=== PATIENT | male | born 1970 | race Caucasian/White ===

== ENCOUNTER → 2018-02-11 07:58 | Outpatient (CLI) | payer OTHER, SELFPAY ==
--- NOTE | 2018-02-11 08:05 | DI.MRI.S_ITS ---
PROCEDURE: MR ORBITS FACE NECK WO/W CON INDICATIONS: LOCALIZED ENLARGED LYMPH NODES TECHNIQUE: Sagittal/axial/coronal T1 spin echo and STIR. After the administration of contrast, axial/coronal/sagittal T1 fast spin echo with fat saturation through the neck. COMPARISON: None. FINDINGS: Image quality: Excellent. Lymph nodes: No lymphadenopathy based on size criteria. Vessels: Visualized vasculature appears normal, with normal flow voids and enhancement. Neck spaces: The oropharynx, nasopharynx and pharynx are unremarkable, without mucosal lesions seen. Vocal cords, false vocal cords, pyriform sinuses, epiglottis, vallecula, and tongue base all appear normal. Extramucosal spaces of the neck also appear unremarkable. Glands: There is a 2.4 x 2.8 x 2.5 cm heterogeneously enhancing mass involving the right submandibular gland. Left submandibular gland is normal in appearance. The parotid glands appear normal. Thyroid gland is normal in. Miscellaneous: Visualized brain and orbits appear normal. Lung apices appear clear. Superficial soft tissues appear normal. Mucous retention cysts versus polyps noted in the maxillary sinuses bilaterally. The mastoids appear clear. Bones: Marrow has normal overall signal. IMPRESSION: 2.4 x 2.8 x 2.5 cm heterogeneous enhancing right submandibular gland mass. Differential diagnosis includes benign etiology such as pleomorphic adenoma and malignant etiologies including mucoepidermoid carcinoma or metastatic lesion. Recommend ENT consultation for biopsy evaluation. Dictated by: Naila Alcantar MD, PhD on 02/13/2018 at 8:52 Approved by: Naila Alcantar MD, PhD on 02/13/2018 at 9:12
== END ==
PROVIDERS: Visit Provider Student in an Organized Health Care Education/Training Program
DX: R59.0 Localized enlarged lymph nodes (principal); K11.9 Disease of salivary gland, unspecified
CPT/HCPCS: 70543; A9579

== ENCOUNTER 2019-07-04 10:30 | Outpatient (RCR) | payer OTHER, SELFPAY ==
--- NOTE | 2019-06-27 17:46 | ST.OPIE ---
Visit Care Team Role Provider Type Linda Mcdonough MD Attending Provider Non-Staff Primary Care Provider Referring Provider Specialty: Family Practice Address: [address] [place] [address], [id number] Email: Speech-Language Pathology Initial Evaluation INSIDE WIRER Motor Speech Evaluation Start: 06/27/19 13:04 Freq: Status: Active Protocol: Document 06/27/19 13:05 LNK (Rec: 06/27/19 17:46 LNK [id number]) Motor Speech Evaluation Session Time Visit Start Time 13:30 Visit Stop Time 14:15 Total Visit Minutes 45 Visit Information Visit Number 05/11 Plan of Care Dates 06/27/19-07/28/19 Setting Setting Outpatient Care Next Note Type Next Note Type Treatment Note Patient History Source: [employer] [facility]). 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 He reports that he has has this surgery twice. The first tumor removal was ~ 2005 or 2006. The most recent removal was removed March 06, 2019. The tumor had attached itself to the hypoglossal nerve. According to Rick, the nerve was injured during the surgery; so chemo therapy and/or radiation therapy were not prescribed to allow the nerve to heal. Rick reported that immediately following his surgery, he had difficulty with eating and swallowing and drooling. He stated that his tongue does not move the food around his mouth when chewing. He compares his speech and tongue movements as being like after he has been numbed at the dentist. He frequently bites his tongue on the right side. Rick also noted that if he eats rapidly, he feels that the food goes down to his esophagus rapidly. At times he feels that something is stuck in his throat after eating. Rick reported that his speech has changed.He needs to be conscientious about speaking slowly so he won't slur his speech. He stated that when he gets excited and/or tired, his speech production and intelligibility are diminished . 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. Oral Motor Lips Function WNL Tongue Function Mild Impairment Observations at rest symmetrical Protrusion deviation to the right Retraction deviation to the left Lateralization Pt cannot perform right side tongue sweep; Involuntary Movement n/a Jaw Function WNL Soft Palate Function WNL Respiration/Phonation Phonation Quality WFL Diadochokinetic Rates P^ Quality WFL T^ Quality WFL K^ Quality WFL P^T^K^ Quality WFL Speech Intelligibility Awareness/Strategy Use Description Type of awareness/use Uses consistently Findings Details Motor Speech Function Mild-Moderate Impairment Assessment Details Assessment Rick Tang presented with weakened right side lingual muscles. Decreased lingual ROM , and coordination was also observed. Rick reports diminished speech and swallowing since his surgery. He also reported that both speech and swallowing have improved since his surgery. This in encouraging for continued therapeutic exercises targeting lingual and linguapharyngeal muscle strength and ROM. As his strength, ROM and coordination improves it is expected that both speech and swallowing skills will improve. Prognosis Rehabilitation Potential Good Recommendations Treatment Recommended Yes Frequency 1x/week Duration 3-4 months Therapy Recommendations Om exercises to increase lingual ROM, strength and coordination Short Term Goals Rick will perform assigned exercises as part of his HEP daily. Increased lingual ROM, strength and coordination will occur as evident in length, duration and speech clarity in raid speech activities . Pt will report improved mastication and bolus control. Patient/Family Education Education Patient Understanding,Patient Demonstration
--- NOTE | 2019-06-27 17:48 | ST.OPPOC ---
Physical, Occupational & Speech Therapy At [facility] Visit Care Team Role Provider Type Linda Mcdonough MD Attending Provider Non-Staff Primary Care Provider Referring Provider Address: [address] [place] [address], [address] Speech Pathology Plan of Care Plan of Care Dates 06/27/19-07/28/19 Short Term Goals Rick will perform assigned exercises as part of his HEP daily. Increased lingual ROM, strength and coordination will occur as evident in length, duration and speech clarity in raid speech activities . Pt will report improved mastication and bolus control. Electronically Signed by: CHLOÉ Snyder 06/27/19 [id number] Please Sign and Return: I have reviewed this Plan of Care and certify that the skilled therapy services above are required to meet the patient?s needs. Physician Signature Date Printed Name and Credentials Clinical Instructor Signature Printed Name and Credentials
--- NOTE | 2019-07-04 13:16 | ST.IPDYTX ---
Visit Care Team Role Provider Type Linda Mcdonough MD Attending Provider Non-Staff Primary Care Provider Referring Provider Specialty: [facility] Address: [address] [place] [address], [id number] Email: PROFESSIONAL HOUSING CONSULTANT Dysphagia Treatment PROFESSIONAL HOUSING CONSULTANT Dysphagia Treatment Start: 06/27/19 13:04 Freq: Status: Active Protocol: Document 07/04/19 13:04 LNK (Rec: 07/04/19 13:16 LNK [id number]) Dysphagia Treatment Session Time Visit Start Time 10:30 Visit Stop Time 11:15 Total Visit Minutes 45 Visit Information Visit Number 2 Plan of Care Dates 06/27/19-07/28/19 Setting Assessment Location Outpatient Care Visit Type Note Type Treatment Note Next Note Type Next Note Type Treatment Note Patient Information Identification Type Name,Picture Treatment Additional Dysphagia Treatment chewing gum; OM strengthening, Strategies increasing ROM exercises Treatment Activities Reviewed exercises from last week. Pt reported that his ROM of right side of tongue has increased. Demonstrated same to me. Extended the right ROM exercise to putting his tongue tip into the buccal cavity lower right and moving posteriorly. Pt demonstrated exercise to this PROFESSIONAL HOUSING CONSULTANT successfully. Additionally a computer generated video of mastication was shown to pt in order to understand rotary chewing. Pt then chewed 2 pieces of gum with specific directions to move gum bolus L -R and R-L to facilitate lingual action controlling the bolus during chewing. 2 new exercises: posterior lingual elevation exercise and holding the gum to his right side of palate. Both exercises to target for right lingual muscle strengthening Pt demonstrated all exercises successfully. Written description provided for HEP. Assessment Patient Response to Treatment Excellent Rehab Potential Excellent Aspiration Precautions Recommended Precautions Upright at 90 Degrees,Lingual Sweep,Clair Maneuvor Treatment Plan Placement Recommendation after Discharge Outpatient Therapy Appropriate for Continued Therapy Yes Dysphagia Goals Rick will perform assigned exercises as part of his HEP daily. Increased lingual ROM, strength and coordination will occur as evident in length, duration and speech clarity in raid speech activities . Pt will report improved mastication and bolus control. [ End ]
--- NOTE | 2020-03-03 15:40 | ST.IPDYTX ---
Visit Care Team Role Provider Type Linda Mcdonough MD Attending Provider Non-Staff Primary Care Provider Referring Provider Specialty: Family Practice Address: [address] [place] [address], [address] Email: PROVIDER RELATIONS SPECIALIST Dysphagia Treatment PROVIDER RELATIONS SPECIALIST Dysphagia Treatment Start: 06/27/19 13:04 Freq: Status: Active Protocol: Document 03/03/20 15:39 LNK (Rec: 03/03/20 15:40 LNK [id number]) Dysphagia Treatment Setting Assessment Location Outpatient Care Visit Type Note Type Discharge Summary Treatment Additional Dysphagia Treatment chewing gum; OM strengthing, Strategies increasing ROM exercises Treatment Activities Reviewed exercises from last week. Pt reported that his ROM of right side of tongue has increased. Demonstrated same to me. Extended the right ROM exercise to putting his tongue tip into the buccal cavity lower right and moving posteriorly. Pt demonstrated exercise to this PROVIDER RELATIONS SPECIALIST successfully. Additionally a computer generated video of mastication was shown to pt in order to understand rotary chewing. Pt then chewed 2 pieces of gum with specific directions to move gum bolus L -R and R-L to facilitate lingual action controlling the bolus during chewing. 2 new exercises: posterior lingual elevation exercise and holding the gum to his right side of palate. Both exercises to target for right lingual muscle strengthening Pt demonstrated all exercises successfully. Written description provided for HEP. Assessment Assessment of Improvement Pt has not been sees for swallowing therapy since . Will discharge at this time Treatment Plan Appropriate for Continued Therapy No Therapy Recommendations Discharge
== END 2020-05-08 08:05 | disposition home or self-care (01) ==
LOC: SP 10:30
DX: R47.9 Unspecified speech disturbances (principal)
CPT/HCPCS: 92522; 92526

== ENCOUNTER → 2019-09-12 15:30 | Outpatient (CLI) | payer OTHER, SELFPAY ==
--- NOTE | 2019-09-12 | DI.MRI.S_ITS ---
PROCEDURE: MR BRAIN (IAC) WWO CON INDICATIONS: Unspecified hearing loss, left ear TECHNIQUE: Noncontrast sagittal T1 spin echo, axial FLAIR, axial gradient echo, axial diffusion and ADC through the brain. Axial thin-slice 3D CISS, coronal TruFISP, axial T1 spin echo with fat saturation through the internal auditory canals. After the administration of contrast, thin slice axial and coronal T1 spin echo with fat saturation through the internal auditory canals, and axial T1 spin echo with fat saturation through the brain. COMPARISON: [facility], MR, MR ORBITS FACE NECK WO/W CON, 02/11/2018, 8:25. FINDINGS: Image quality: Excellent. Cerebellopontine angles: No cerebellopontine angle masses. Inner ear structures appear normally formed. No suspicious enhancement in the internal auditory canal or along the course of the 7th cranial nerve. CSF spaces: Ventricles are normal in size and shape. No extra-axial fluid collections. Basal cisterns are patent. Brain: No intracranial bleeds or mass effects. Palacios-white matter interface is intact. No abnormal intracranial enhancement. Diffusion weighted images demonstrate no acute ischemic insults. Brainstem appears normal. Normal intravascular flow voids are present. Dural sinuses demonstrate normal postcontrast enhancement. Skull and face: Calvarial marrow signal is normal. Small, approximately 1.3 cm in maximum diameter focus of isointense T1 signal and hyperintense T2 signal without postcontrast enhancement noted in the right petrous apex which is stable compared to prior MRI. Lesion may represent a mucocele the petrous apex. Orbits appear normal. Sinuses: Mucosal retention cyst versus polyps noted in the maxillary sinuses bilaterally. The mastoids are clear. IMPRESSION: 1. No acute intracranial disease process. 2. No evidence of vestibular schwannoma. Dictated by: Naila Alcantar MD, PhD on 09/12/2019 at 17:08 Approved by: Naila Alcantar MD, PhD on 09/12/2019 at 17:18
== END ==
DX: H91.92 Unspecified hearing loss, left ear (principal)
CPT/HCPCS: 70553

== ENCOUNTER → 2020-02-15 07:52 | Outpatient (CLI) | payer OTHER, SELFPAY ==
--- NOTE | 2020-02-15 | DI.ECHO.S_ITS ---
[facility]---------+ [facility] +---------+ : : [address] : : : : [id number] : : : : Phone: [phone]+ Echocardiogram Report + + :Name: TAO HERMAN Study Date: 02/15/2020 Height: 70 in : :[facility] Weight: 253 lb : : Gender: Male BSA: 2.3 m2 : :: 1970 Age: 49 yrs BP: 133/90 mmHg: :Reason For Study: Abnormal ECG/ WEAK VENTRICLE : : Performed By: Nichole Page : + + Interpretation Summary Left ventricular systolic function is normal with an estimated ejection fraction of 55 to 60% without any focal wall motion abnormality. Left ventricular size and wall thickness appear normal. Diastolic function is likely normal with normal filling pressures. The right ventricle appears normal. Pulmonary artery systolic pressure cannot be estimated but CVP is likely around 3 mmHg. Both atria are normal in size. There is no significant valvular abnormality. The patient was in sinus rhythm with occasional PVCs during the exam. Procedure: A two-dimensional transthoracic echocardiogram with color flow and Doppler was performed. The study quality was technically adequate. There is no prior echocardiogram noted for this patient. The patient was in normal sinus rhythm during the exam. The patient had occasional PVCs during the exam. Left Ventricle: The left ventricle appears normal in size, wall thickness, and systolic function without any focal wall motion abnormalities. The ejection fraction is estimated to be 55-60%. Diastolic parameters suggest probable normal left ventricular diastolic function and normal filling pressures. Right Ventricle: The right ventricle is normal in size and function. Atria: Both atria are normal in size. Doppler interrogation and injection of saline echo contrast shows no evidence for an interatrial shunt. Mitral Valve: The mitral valve leaflets appear normal. There is no evidence of stenosis, fluttering, or prolapse. There is trace mitral regurgitation. Aortic Valve: The aortic valve is trileaflet. The aortic valve is slightly calcified. The aortic valve opens well. There is trace aortic regurgitation. Tricuspid Valve: The tricuspid valve is normal in structure and function. There is a trace or physiologic amount of tricuspid regurgitation. Pulmonary artery pressures cannot be estimated because of the lack of a measurable TR jet velocity but the IVC suggests a CVP of around 3 mmHg. Pulmonic Valve: The pulmonic valve is not well seen, but is grossly normal. There is a trace or physiologic amount of pulmonic regurgitation. There is no significant valvular heart disease. Great Vessels: The aortic root is normal size. The ascending aorta is normal in size. The pulmonary artery is normal size. The IVC is of normal diameter and collapses greater than 50% with a sniff. This suggests a low right atrial pressure of 3 mm Hg. Pericardium/ Pleura There is no pericardial effusion. There is no pleural effusion. MMode/2D Measurements & Calculations LVIDd: 5.3 cm LVOT diam: 2.5 cm LVIDs: 4.0 cm Ao root diam: 3.6 cm FS: 24.9 % asc Aorta Diam: 3.1 cm IVSd: 0.74 cm LVPWd: 0.74 cm LV castorena. diameter/BSA (cm/m^2): 2.3 LV sys. diameter/BSA (cm/m^2): 1.7 LA A2 area: 20.7 cm2 RA long axis: 4.9 cm LA A4 area: 23.6 cm2 RA area: 16.0 cm2 LA length (vol): 5.7 cm RA vol: 44.7 ml LA vol: 72.8 ml RA : 19.4 ml/m2 LA vol index: 31.6 ml/m2 IVC diam: 1.5 cm RVD1 (basal): 3.9 cm TAPSE: 1.6 cm Doppler Measurements & Calculations LVOT Max Choco: 82.4 cm/sec MV E max choco: 66.5 cm/sec LV V1 max P.7 mmHg MV A max choco: 58.5 cm/sec LV V1 VTI: 16.8 cm MV E/A: 1.1 Med Peak E' Choco: 7.8 cm/sec E/E' med: 8.5 Lat Peak E' Choco: 11.4 cm/sec E/E' lat: 5.8 E/e' average: 7.2 MV P1/2t: 57.9 msec PA V2 max: 63.4 cm/sec MV P1/2t max choco: 67.1 cm/sec PA V2 mean: 43.8 cm/sec MVA(P1/2t): 3.8 cm2 PA mean P.84 mmHg PA Accel Time: 0.11 sec SV([facility]): 81.5 ml Reading Physician:01:32 PM
== END ==
PROVIDERS: PCP Physician Assistant; Referring Provider Orthopaedic Surgery; Visit Provider Orthopaedic Surgery
DX: R94.31 Abnormal electrocardiogram [ECG] [EKG] (principal)
CPT/HCPCS: 93306

== ENCOUNTER → 2020-08-14 08:00 | Outpatient (CLI) | payer OTHER, SELFPAY ==
--- NOTE | 2020-08-14 | DI.US.S_ITS ---
PROCEDURE: US ABDOMEN COMPLETE INDICATIONS: CHRONIC KIDNEY DISEASE STAGE 3 TECHNIQUE: Real-time scanning was performed of the abdominal and retroperitoneal organs, with image documentation. COMPARISON: None. FINDINGS: Study limited secondary to patient scanning characteristics and increased bowel gas. Liver: The liver demonstrates diffusely increased echotexture without focal abnormalities consistent with chronic hepatocellular disease/hepatic steatosis. The michael hepatis and main portal vein were not well visualized. Gallbladder: Gallbladder contains a 1.8 cm x 1.4 cm mobile gallstone without associated wall thickening or pericholecystic fluid. Biliary ducts: Intrahepatic bile ducts are non-dilated. Extrahepatic bile duct is not well visualized. Pancreas: Visualized portions of the pancreas are sonographically normal. Spleen: Spleen is normal in size and homogeneous in echotexture. There is a thin linear echogenic band noted within the mid spleen. This may represent a cleft. Kidneys: Kidneys are normal in size and echotexture. Right kidney measures 10.9 cm long; left kidney measures 10.9 cm long. No hydronephrosis or nephrolithiasis. No solid masses. Aorta: Visualized aorta is normal in caliber at less than 3 cm. Iliacs: Proximal common iliac arteries are normal in caliber at less than 2.5 cm. IVC: Intrahepatic inferior vena cava is not well visualized. Miscellaneous: No free abdominal fluid. IMPRESSION: 1. The liver demonstrates diffusely increased echotexture without focal abnormalities consistent with chronic hepatocellular disease/hepatic steatosis. Consider correlation with LFTs. 2. Cholelithiasis without sonographic evidence for acute cholecystitis. 3. Linear hyperechoic band within the mid spleen likely representing a splenic cleft. 4. Unremarkable sonographic evaluation of the kidneys. No evidence for obstructive uropathy. Dictated by: Ravinder Salazar M.D. on 08/14/2020 at 9:11 Approved by: Ravinder Salazar M.D. on 08/14/2020 at 9:17
== END ==
PROVIDERS: PCP Family Medicine; Referring Provider Family Medicine; Visit Provider Family Medicine
DX: K80.20 Calculus of gallbladder without cholecystitis without obstruction (principal); N18.30 Chronic kidney disease, stage 3 unspecified
CPT/HCPCS: 76700

== ENCOUNTER → 2021-10-27 12:13 | Outpatient (CLI) | payer OTHER, SELFPAY ==
--- NOTE | 2021-10-27 | DI.RAD.S_ITS ---
PROCEDURE: XR CERVICAL SPINE 2V OR 3V INDICATIONS: Radiculopathy, cervical region TECHNIQUE: 3 view(s) of the cervical spine were acquired. COMPARISON: None. FINDINGS: Bones: No fractures or dislocations to the C6-7 level. The lateral masses of C1 appear intact on the odontoid view. No suspicious bony lesions. There is loss of the expected cervical lordosis. Soft tissues: No prevertebral soft tissue swelling. Surgical clips are present within the right cervical soft tissues. IMPRESSION: No radiographic abnormalities. Dictated by: Daina Hood M.D. on 10/27/2021 at 16:54 Approved by: Daina Hood M.D. on 10/27/2021 at 16:55
== END ==
PROVIDERS: PCP Family Medicine; Referring Provider Family Medicine; Visit Provider Family Medicine
DX: M54.12 Radiculopathy, cervical region (principal)
CPT/HCPCS: 72040

== ENCOUNTER → 2022-10-01 07:37 | Outpatient (CLI) | payer OTHER, SELFPAY ==
--- NOTE | 2022-10-01 | DI.RAD.S_ITS ---
PROCEDURE: XR CERVICAL SPINE 2V OR 3V INDICATIONS: Radiculopathy, cervical region TECHNIQUE: 3 view(s) of the cervical spine were acquired. COMPARISON: [facility], CR, XR CERVICAL SPINE 2V OR 3V, 10/27/2021, 12:30. FINDINGS: Bones: No fractures or dislocations to the T1 level. The lateral masses of C1 appear intact on the odontoid view. No suspicious bony lesions. No significant cervical spondylitic change. Soft tissues: No prevertebral soft tissue swelling. IMPRESSION: 1. Unremarkable cervical spine plain films. Comment: Cervical spine MRI may be helpful. Dictated by: Nando Strickland M.D. on 10/01/2022 at 14:11 Approved by: Nando Strickland M.D. on 10/01/2022 at 14:11
== END ==
PROVIDERS: PCP Family Medicine; Referring Provider Family Medicine; Visit Provider Family Medicine
DX: M54.12 Radiculopathy, cervical region (principal)
CPT/HCPCS: 72040

== ENCOUNTER → 2022-11-02 09:14 | Outpatient (CLI) | payer OTHER, SELFPAY ==
--- NOTE | 2022-11-02 09:15 | DI.MRI.S_ITS ---
PROCEDURE: MR CERVICAL SPINE WO CON INDICATIONS: Radiculopathy, cervical region TECHNIQUE: Noncontrast sagittal T1 spin echo and T2 fast spin echo, sagittal STIR, foraminal oblique sagittal T2 fast spin echo, and axial gradient echo or T2 fast spin echo through the cervical spine. COMPARISON: [facility], CR, XR CERVICAL SPINE 2V OR 3V, 10/01/2022, 7:51. FINDINGS: Image quality: Excellent. Alignment and Curvature: There is straightening of normal cervical lordosis. Bone Marrow: Marrow demonstrates normal overall signal. Spinal Cord: Visualized spinal cord has normal size and signal. No cerebellar tonsillar herniation. Paraspinous Soft Tissues: No paravertebral masses. Prevertebral soft tissues are normal in thickness. C2-C3: Minimal bilateral uncovertebral osteoarthrosis. No significant neural foraminal stenosis. Minimal spinal canal stenosis. C3-C4: Minimal bilateral uncovertebral osteoarthrosis. No significant neural foraminal stenosis. Minimal spinal canal stenosis. C4-C5: Mild bilateral uncovertebral osteoarthrosis. Shallow posterior disc osteophyte complex. Minimal left neural foraminal stenosis. No significant right neural foraminal stenosis. No significant spinal canal stenosis. C5-C6: Bilateral uncovertebral osteoarthrosis. Mild bilateral facet arthropathy. Slightly eccentric to the right broad-based posterior disc osteophyte complex. There is mild right and minimal left bilateral neural foraminal stenosis. No significant spinal canal stenosis. C6-C7: Moderate bilateral uncovertebral osteoarthrosis. Bilateral facet arthropathy. Eccentric to the right broad-based posterior disc osteophyte complex. There is minimal left and mild right bilateral neural foraminal stenosis with moderate spinal canal stenosis. C7-T1: Minimal bilateral uncovertebral osteoarthrosis. No significant neuroforaminal or spinal canal stenosis. IMPRESSION: Multilevel, multifactorial cervical spondylosis as detailed above by vertebral body level. Findings are most severe at C6-7. Straightening of normal cervical lordosis which may be related to positioning and/or concurrent muscle spasms. Dictated by: Ravinder Salazar M.D. on 11/02/2022 at 16:37 Approved by: Ravinder Salazar M.D. on 11/02/2022 at 16:47
== END ==
PROVIDERS: PCP Family Medicine; Referring Provider Family Medicine; Visit Provider Family Medicine
DX: M47.22 Other spondylosis with radiculopathy, cervical region (principal)
CPT/HCPCS: 72141